=== PATIENT | female | born 1985 | race Caucasian/White ===

== ENCOUNTER 2017-08-17 10:24 | Outpatient (CLI) | payer OTHER | END 2017-08-17 12:25 | disposition home or self-care (01) | LOC: OBT 10:24 → L-D 10:25 → OBT 12:25 | DX: O40.3XX0 Polyhydramnios, third trimester, not applicable or unspecified (principal); Z3A.34 34 weeks gestation of pregnancy | CPT/HCPCS: 76815; 76818; 82962 ==

== ENCOUNTER 2017-09-14 06:20 | Inpatient (IN) | payer OTHER ==
[2017-09-14] MEDS ORDERED: OXYTOCIN 30 UNITS/LR 500 ML BAG IV (07:00)
[2017-09-14] MEDS ORDERED: METHYLERGONOVINE 0.2 MG INJ IM ×2 (08:00→12:00)
[2017-09-14] MEDS ORDERED: CARBOPROST 250 MCG INJ IM ×2 (08:00→12:00)
[2017-09-14] MEDS ORDERED: MISOPROSTOL 200 MCG TAB PR ×2 (08:00→12:00)
[2017-09-14] MEDS ORDERED: CEFAZOLIN 2 GM/50 ML (PMX) 50 ML IV (08:00)
[2017-09-14] MEDS ORDERED: OXYTOCIN 30 UNITS/LR 500 ML IV (08:00)
[2017-09-14] MEDS: LACTATED RINGER'S 1,000 ML IV ×2 (08:04→08:18)
[2017-09-14 08:20] LABS: ADD MAN DIFF? NO
[2017-09-14 08:28] LABS: WHITE BLOOD COUNT 10.4 10^3/ul (4.8-10.8)
[2017-09-14 08:28] LABS: BASOPHILS % 0.3 % (0.0-2.0); EOSINOPHILS # 0.1 10^3/ul (0.0-0.5); EOSINOPHILS % 0.6 % (0.0-7.0); HEMATOCRIT 34.2 % (37.0-47.0); HEMOGLOBIN 11.2 g/dl (12.0-16.0); LYMPHOCYTES # 3.3 10^3/ul (0.8-2.9); LYMPHOCYTES % 31.5 % (15.0-51.0); MEAN CORPUSCULAR HEMOGLOBIN 28.6 pg (29.0-33.0); MEAN CORPUSCULAR HGB CONC 32.7 g/dl (32.0-37.0); MEAN CORPUSCULAR VOLUME 87.2 fl (82.0-101.0); MEAN PLATELET VOLUME 10.9 fl (7.4-10.4); MONOCYTE # 0.7 10^3/ul (0.3-0.9); MONOCYTES % 6.2 % (0.0-11.0); NEUTROPHIL # 6.3 10^3/ul (1.6-7.5); NEUTROPHILS % 60.9 % (39.0-77.0); PLATELET COUNT 284 10^3/UL (140-415); RED BLOOD COUNT 3.92 10^6/ul (4.20-5.40); RED CELL DISTRIBUTION WIDTH 14.8 % (11.5-14.5)
[2017-09-14 08:50] LABS: PROTIME 12.2 Sec (11.9-14.9)
[2017-09-14 08:51] LABS: PARTIAL THROMBOPLASTIN TIME 27.5 Sec (25.0-35.0)
[2017-09-14] MEDS: CITRIC ACID/SODIUM CITRATE 15 ML CUP PO (08:54)
[2017-09-14] MEDS: ONDANSETRON 4 MG INJ IV (08:54)
[2017-09-14] MEDS ORDERED: METOCLOPRAMIDE 10 MG INJ (10:37)
[2017-09-14] MEDS ORDERED: morphine SULFATE/PF (10 MG/10 ML) INJ (10:37)
[2017-09-14] MEDS ORDERED: KETOROLAC 30 MG INJ (10:37)
[2017-09-14] MEDS ORDERED: OXYTOCIN 10 UNIT INJ (10:37)
[2017-09-14] MEDS ORDERED: PHENYLephrine (100 MCG/ML) 5ML SYG ×2 (10:37→11:29)
[2017-09-14] MEDS ORDERED: BUPIVACAINE 0.75%/DEXT (SPINAL) 2 ML INJ (10:38)
[2017-09-14] MEDS ORDERED: DEXAMETHASONE 4 MG/ML 1 ML INJ (10:38)
[2017-09-14 11:11] LABS: HEPATITIS B SURFACE ANTIGEN NEGATIVE (NEGATIVE)
[2017-09-14] MEDS ORDERED: ACETAMINOPHEN 500 MG TAB PO (12:00)
[2017-09-14] MEDS ORDERED: NALOXONE (0.4 MG/ML) INJ IV (12:00)
[2017-09-14] MEDS ORDERED: morphine 2 MG INJ IV ×2 (12:00)
[2017-09-14] MEDS ORDERED: HYDROmorphONE 0.5 MG/0.5 ML SYG IV ×2 (12:00)
[2017-09-14] MEDS ORDERED: NALBUPHINE HCL (10 MG/1 ML) INJ IV (12:00)
[2017-09-14] MEDS ORDERED: ONDANSETRON 4 MG INJ IV (12:00)
[2017-09-14] MEDS ORDERED: HYDROCODONE/APAP (5/325) TAB PO ×2 (12:00)
[2017-09-14] MEDS ORDERED: DIPHENHYDRAMINE 50 MG INJ IV (12:00)
[2017-09-14] MEDS: OXYTOCIN 30 UNITS/LR 500 ML IV ×3 (12:30→20:28)
[2017-09-14 15:19] LABS: RAPID PLASMA REAGIN NONREACTIVE (NR)
[2017-09-14] MEDS: IBUPROFEN 600 MG TAB PO ×2 (17:00→18:00)
[2017-09-14] MEDS: LANOLIN 7 GM TUBE TOP (20:29)
[2017-09-15] MEDS: KETOROLAC 30 MG INJ IV (05:58)
[2017-09-15] MEDS: IBUPROFEN 600 MG TAB PO ×5 (06:00→23:36)
[2017-09-15] MEDS: morphine 2 MG INJ IV (10:54)
[2017-09-15 11:19] LABS: ADD MAN DIFF? NO
[2017-09-15 11:25] LABS: BASOPHILS % 0.3 % (0.0-2.0); EOSINOPHILS % 0.2 % (0.0-7.0); HEMATOCRIT 25.9 % (37.0-47.0); HEMOGLOBIN 8.4 g/dl (12.0-16.0); LYMPHOCYTES % 26.8 % (15.0-51.0); MEAN CORPUSCULAR HEMOGLOBIN 28.4 pg (29.0-33.0); MEAN CORPUSCULAR HGB CONC 32.4 g/dl (32.0-37.0); MEAN CORPUSCULAR VOLUME 87.5 fl (82.0-101.0); MEAN PLATELET VOLUME 10.4 fl (7.4-10.4); MONOCYTE # 0.8 10^3/ul (0.3-0.9); MONOCYTES % 6.7 % (0.0-11.0); NEUTROPHIL # 7.3 10^3/ul (1.6-7.5); NEUTROPHILS % 65.6 % (39.0-77.0); PLATELET COUNT 230 10^3/UL (140-415); RED BLOOD COUNT 2.96 10^6/ul (4.20-5.40); RED CELL DISTRIBUTION WIDTH 14.7 % (11.5-14.5)
[2017-09-15 11:25] LABS: WHITE BLOOD COUNT 11.1 10^3/ul (4.8-10.8)
[2017-09-15] MEDS: OXYCODONE/ACETAMINOPHEN (5/325) TAB PO (17:11)
[2017-09-16] MEDS: IBUPROFEN 600 MG TAB PO ×3 (05:41→19:24)
[2017-09-16] MEDS: OXYCODONE/ACETAMINOPHEN (5/325) TAB PO ×3 (06:07→17:54)
[2017-09-17] MEDS: IBUPROFEN 600 MG TAB PO ×3 (00:52→11:18)
[2017-09-17] MEDS: OXYCODONE/ACETAMINOPHEN (5/325) TAB PO ×2 (06:05→11:21)
[2017-09-17] MEDS: MEASLES,MUMPS,RUBELLA VACCINE INJ SC* (09:00)
[2017-09-17] MEDS: DIPHTH/TET/ACEL PERTUSS (ADULT) 0.5 ML VIAL IM* (12:37)
== END 2017-09-17 12:55 | disposition home or self-care (01) | DRG 766 ==
LOC: OBT 06:20 → L-D 06:25 → OBT 07:18 → L-D 07:10 → PP1 16:56
PROVIDERS: Specialist
PROC: 10D00Z1 Extraction of Products of Conception, Low, Open Approach (ICD-10-PCS; principal; 2017-09-14)
DX: O82 Encounter for cesarean delivery without indication (principal); Z3A.38 38 weeks gestation of pregnancy; Z37.0 Single live birth
CPT/HCPCS: 85025; 85610; 85730; 86592; 86850; 86900; 86901; 87340; 90715; 94760; 99464